=== PATIENT | female | born 2000 | race Caucasian/White ===

== ENCOUNTER 2023-01-25 11:21 | Emergency (ER) | payer BC, OTHER ==
[~2023-01-25] VITALS: Ht 167 cm; Wt 68.0 kg
--- NOTE | 2023-01-25 11:37 | ED Abdominal Pain ---
General Stated Complaint: AB PAIN Source of Information: Patient Exam Limitations: No Limitations History of Present Illness Date Seen by Provider: Jan 25, 2023 Time Seen by Provider: 11:35 Initial Comments Patient is a 22-year-old female who presents to the ED for abdominal pain. Abdominal pain started 2 days ago. Pain is described as sharp and constant. Describes as razor blades. Pain that starts in her upper abdomen and lower abdomen and radiates to the back. She reports nausea without vomiting. Decreased appetite. She reports frequent urination without any pain with urination. Last menstrual cycle was a little over 1 month ago. History of irregular menstrual cycles. She denies of any chest pain, cough, shortness of breath, sore throat, ear pain, fever, chills, headache. She did take Advil last night as pain was worse without much improvement. No history of previous abdominal surgery. She is not concerned for . No vaginal discharge. She states she had a normal soft bowel movement 2 days ago but had a small bowel movement yesterday. Allergies and Home Medications Allergies Coded Allergies: No Known Drug Allergies (Unverified , 01/25/23) Patient Home Medication List Home Medication List Reviewed: Yes Cephalexin (Cephalexin) 500 Mg Tablet, 500 MG PO BID Prescribed by: FELICIA MARMOLEJO on 01/25/23 1250 Naproxen (Naproxen) 500 Mg Tablet, 500 MG PO Q12H Prescribed by: FELICIA MARMOLEJO on 01/25/23 1250 Ondansetron (Ondansetron Odt) 4 Mg Tab.rapdis, 4 MG SL Q4H PRN for NAUSEA/VOMITING Prescribed by: FELICIA MARMOLEJO on 01/25/23 1250 Review of Systems Review of Systems Constitutional: No chills, No diaphoresis EENTM: No Double Vision, No Eye Pain Respiratory: Denies Cough, Denies Orthopnea Cardiovascular: Denies Chest Pain Gastrointestinal: Abdominal Pain; Denies Constipated, Denies Diarrhea; Nausea; Denies Vomiting Genitourinary: Denies Burning, Denies Discharge Musculoskeletal: No back pain, No joint pain Skin: No change in color, No change in hair/nails All Other Systems Reviewed Negative Unless Noted: Yes Physical Exam Vital Signs Vital Signs - First Documented 01/25/23 11:28 Temp 37.5 Pulse 97 Resp 20 B/P (MAP) 122/104 (110) Pulse Ox 98 O2 Delivery Room Air Capillary Refill : Height/Weight/BMI Height: '" Weight: lbs. oz. kg; BMI Method: General Appearance: WD/WN, no apparent distress HEENT: PERRL/EOMI, normal ENT inspection, TMs normal, pharynx normal Neck: non-tender, full range of motion, supple, normal inspection Respiratory: chest non-tender, lungs clear, normal breath sounds, no respiratory distress, no accessory muscle use Cardiovascular: regular rate, rhythm, no edema, no gallop, no JVD Gastrointestinal: normal bowel sounds, soft, no organomegaly, tenderness (diffuse abdominal tenderness on palpation. 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, no motor/sensory deficits, alert, normal mood/affect, oriented x 3 Skin: normal color, warm/dry Progress/Results/Core Measures Results/Orders Lab Results Laboratory Tests Test 01/25/23 11:38 01/25/23 11:45 Range/Units Urine Color YELLOW Urine Clarity CLOUDY Urine pH 6.0 5-9 Urine Specific Gregory 1.020 1.016-1.022 Urine Protein TRACE H NEGATIVE Urine Glucose (UA) NEGATIVE NEGATIVE Urine Ketones NEGATIVE NEGATIVE Urine Nitrite NEGATIVE NEGATIVE Urine Bilirubin NEGATIVE NEGATIVE Urine Urobilinogen 0.2 < = 1.0 MG/DL Urine Leukocyte Esterase 1+ H NEGATIVE Urine RBC (Auto) NEGATIVE NEGATIVE Urine RBC NONE /HPF Urine WBC 5-10 H /HPF Urine Squamous Epithelial Cells 10-25 H /HPF Urine Crystals NONE /LPF Urine Bacteria MODERATE H /HPF Urine Casts NONE /LPF Urine Mucus NEGATIVE /LPF Urine Other /HPF Urine Culture Indicated YES Urine Test NEGATIVE NEGATIVE White Blood Count 9.6 4.3-11.0 10^3/uL Red Blood Count 4.58 3.80-5.11 10^6/uL Hemoglobin 13.7 11.5-16.0 g/dL Hematocrit 40 35-52 % Mean Corpuscular Volume 88 80-99 fL Mean Corpuscular Hemoglobin 30 25-34 pg Mean Corpuscular Hemoglobin Concent 34 32-36 g/dL Red Cell Distribution Width 11.6 10.0-14.5 % Platelet Count 246 130-400 10^3/uL Mean Platelet Volume 10.3 9.0-12.2 fL Immature Granulocyte % (Auto) 0 % Neutrophils (%) (Auto) 79 H 42-75 % Lymphocytes (%) (Auto) 8 L 12-44 % Monocytes (%) (Auto) 11 0-12 % Eosinophils (%) (Auto) 1 0-10 % Basophils (%) (Auto) 0 0-10 % Neutrophils # (Auto) 7.6 1.8-7.8 10^3/uL Lymphocytes # (Auto) 0.8 L 1.0-4.0 10^3/uL Monocytes # (Auto) 1.1 H 0.0-1.0 10^3/uL Eosinophils # (Auto) 0.1 0.0-0.3 10^3/uL Basophils # (Auto) 0.0 0.0-0.1 10^3/uL Immature Granulocyte # (Auto) 0.0 0.0-0.1 10^3/uL Sodium Level 137 135-145 MMOL/L Potassium Level 3.8 3.6-5.0 MMOL/L Chloride Level 106 98-107 MMOL/L Carbon Dioxide Level 19 L 21-32 MMOL/L Anion Gap 12 5-14 MMOL/L Blood Urea Nitrogen 12 7-18 MG/DL Creatinine 0.80 0.60-1.30 MG/DL Estimat Glomerular Filtration Rate 107 BUN/Creatinine Ratio 15 Glucose Level 97 70-105 MG/DL Calcium Level 9.4 8.5-10.1 MG/DL Corrected Calcium 8.5-10.1 MG/DL Total Bilirubin 0.6 0.1-1.0 MG/DL Aspartate Amino Transf (AST/SGOT) 18 5-34 U/L Alanine Aminotransferase (ALT/SGPT) 20 0-55 U/L Alkaline Phosphatase 63 40-136 U/L Total Protein 7.9 6.4-8.2 GM/DL Albumin 4.9 H 3.2-4.5 GM/DL Lipase 6 L 8-78 U/L My Orders Orders - NAHUM SANCHEZ Ua Culture If Indicated (01/25/23 11:25) Hcg,Qualitative Urine (01/25/23 11:25) Cbc With Automated Diff (01/25/23 11:34) Comprehensive Metabolic Panel (01/25/23 11:34) Lipase (01/25/23 11:34) Iv/Invasive Line Insertion .IV INSERT (01/25/23 11:34) Urine Culture (01/25/23 11:38) Abdomen/Kub 1view (01/25/23 12:05) Ketorolac Injection (Toradol Injection) (01/25/23 12:15) Ketorolac Injection (Toradol Injection) (01/25/23 12:07) Medications Given in ED Current Medications Medications Dose Ordered Sig/Lizzie Route Start Time Stop Time Status Last Admin Dose Admin Ketorolac Tromethamine 30 mg ONCE ONCE IVP 01/25/23 12:15 01/25/23 12:16 DC 01/25/23 12:09 30 MG Vital Signs/I&O 01/25/23 01/25/23 11:28 12:56 Temp 37.5 Pulse 97 77 Resp 20 20 B/P (MAP) 122/104 (110) 122/82 Pulse Ox 98 97 O2 Delivery Room Air Room Air Departure Communication (PCP) Patient presents ED with generalized abdominal pain since yesterday. Nausea without vomiting. Soft bowel movement 2 days ago. No history of abdominal surgery. On exam she has diffuse tenderness. She is afebrile. Is not tachycardic. Took Advil yesterday without much improvement. Last menstrual cycle just around a month ago. Denies vaginal bleeding or vaginal discharge. Generalized lab work was ordered CBC, CMP, lipase, urinalysis with test. Differential diagnosis of menstrual pain, colitis, gastroenteritis, appendicitis, cholecystitis. She has no specific localized pain. Negative Rovsing and psoas sign. Generalized tenderness. Abdominal x-ray was ordered. CBC, CMP was grossly unremarkable. Normal lipase. Urinalysis questionable UTI. Negative for . Abdominal x-ray did not note any free air, obstruction or large amount of stool. She did receive Toradol with some improvement in pain. Not necessarily concern for surgical abdomen. She has no localized pain or appears in acute distress. No evidence suggesting PID. Suspect that this is more viral versus early menstrual pain due to her reassuring lab work and negative liver enzymes, lipase and white blood count. Patient pain did improve here. Suggest taking anti-inflammatories with Zofran at home as needed. Will discharge with Keflex for questionable UTI. Discussed with patient if increasing pain, fever with chills vomiting to return back to the ED for further evaluation and imaging. Follow-up with your PCP in 2 to 3 days for evaluation Impression Primary Impression: Abdominal pain Disposition: 01 HOME, SELF-CARE Condition: Stable Departure-Patient Inst. Decision time for Depature: 12:32 Referrals: LANE MALDONADO MD (PCP) Primary Care Physician VICKY DILL DO Patient Instructions: Abdominal Pain, Adult ED Add. Discharge Instructions: Take anti-inflammatories for pain. Zofran for nausea. Keflex for potential UTI. If any worsening symptoms such as fever, chills, worsening localized pain to return back to ED. Scripts Cephalexin (Cephalexin) 500 Mg Tablet 500 MG PO BID for 7 Days, #14 TAB Prov: NAHUM SANCHEZ 01/25/23 Naproxen (Naproxen) 500 Mg Tablet 500 MG PO Q12H PRN for ABDOMINAL PAIN, #14 TAB Prov: NAHUM SANCHEZ 01/25/23 Ondansetron (Ondansetron Odt) 4 Mg Tab.rapdis 4 MG SL Q4H PRN for NAUSEA/VOMITING, #6 TAB Prov: NAHUM SANCHEZ 01/25/23 NAHUM SANCHEZ Jan 25, 2023 11:37
[2023-01-25 11:52] LABS: BASOPHILS % (AUTO) 0 % (0-10); EOSINOPHILS # (AUTO) 0.1 10^3/uL (0.0-0.3); EOSINOPHILS % (AUTO) 1 % (0-10); HEMATOCRIT 40 % (35-52); HEMOGLOBIN 13.7 g/dL (11.5-16.0); LYMPHOCYTES # (AUTO) 0.8 10^3/uL (1.0-4.0); LYMPHOCYTES % (AUTO) 8 % (12-44); MEAN CORPUSCULAR HEMOGLOBIN 30 pg (25-34); MEAN CORPUSCULAR HGB CONC 34 g/dL (32-36); MEAN CORPUSCULAR VOLUME 88 fL (80-99); MEAN PLATELET VOLUME 10.3 fL (9.0-12.2); MONOCYTES # (AUTO) 1.1 10^3/uL (0.0-1.0); MONOCYTES % (AUTO) 11 % (0-12); NEUTROPHILS # (AUTO) 7.6 10^3/uL (1.8-7.8); NEUTROPHILS % (AUTO) 79 % (42-75); PLATELET COUNT 246 10^3/uL (130-400); WHITE BLOOD COUNT 9.6 10^3/uL (4.3-11.0)
[2023-01-25 11:54] LABS: BILIRUBIN,URINE NEGATIVE (NEGATIVE); CLARITY,URINE CLOUDY; COLOR,URINE YELLOW; GLUCOSE, URINE (UA) NEGATIVE (NEGATIVE); KETONES,URINE NEGATIVE (NEGATIVE); LEUKOCYTE ESTERASE ,URINE 1+ (NEGATIVE); NITRITE,URINE NEGATIVE (NEGATIVE); PROTEIN,URINE TRACE (NEGATIVE)
[2023-01-25 12:01] LABS: BACTERIA,URINE MODERATE /HPF
[2023-01-25 12:02] LABS: ALBUMIN 4.9 GM/DL (3.2-4.5)
[2023-01-25 12:03] LABS: CHLORIDE 106 MMOL/L (98-107); POTASSIUM 3.8 MMOL/L (3.6-5.0); SODIUM 137 MMOL/L (135-145)
[2023-01-25 12:04] LABS: CALCIUM 9.4 MG/DL (8.5-10.1)
[2023-01-25 12:05] LABS: GLUCOSE 97 MG/DL (70-105); TOTAL PROTEIN 7.9 GM/DL (6.4-8.2)
[2023-01-25 12:06] LABS: CARBON DIOXIDE 19 MMOL/L (21-32)
[2023-01-25 12:07] LABS: BILIRUBIN,TOTAL 0.6 MG/DL (0.1-1.0)
[2023-01-25] MEDS ORDERED: KETOROLAC 30 MG/ML VIAL ONE (12:07)
[2023-01-25 12:08] LABS: ALKALINE PHOSPHATASE 63 U/L (40-136); GFR ESTIMATED 107
[2023-01-25 12:10] LABS: BUN/CREATININE RATIO 15
[2023-01-25 12:11] LABS: ALANINE AMINOTRANSFERASE 20 U/L (0-55)
[2023-01-25 12:12] LABS: LIPASE 6 U/L (8-78)
[2023-01-25] MEDS ORDERED: KETOROLAC 30 MG/ML VIAL IVP ONE (12:15)
--- NOTE | 2023-01-25 12:20 | Diagnostic Imaging Report ---
EXAMINATION: Abdomen 1 view HISTORY: diffuse abd pain COMPARISON: None available. FINDINGS: FINDINGS: Abdomen: Nonobstructive bowel gas pattern. No free air on this limited supine image. Skeletal Structures and Soft Tissues: No acute osseous abnormality. Normal soft tissues. IMPRESSION: Nonobstructive bowel gas pattern. Dictated by: Dictated on workstation # [id number]
[2023-01-25] MEDS ORDERED: CEPH500T PO ×2 (12:50→15:00)
[2023-01-25] MEDS ORDERED: NAPR-915 PO ×2 (12:50→15:00)
[2023-01-25] MEDS ORDERED: ONDA4TAB11 SL ×2 (12:50→15:00)
[2023-01-25 12:56] VITALS: BP 122/82
== END 2023-01-25 12:56 | disposition home or self-care (01) ==
LOC: ER 11:25
DX: R10.84 Generalized abdominal pain (principal); R11.0 Nausea
CPT/HCPCS: 36415; 74018; 80053; 81000; 83690; 84703; 85025; 87088